=== PATIENT | female | born 1995 | race Caucasian/White ===

== ENCOUNTER 2019-09-13 14:52 | Emergency (ER) | payer OTHER ==
[2019-09-13 17:15] VITALS: BP 115/42
--- NOTE | 2019-09-13 17:35 | UC ---
Throat Pain/Nasal Jhoan HPI - HPI Summary HPI Summary: Pt presents with c/o sudden onset of fever, chills, and ST X 1 day. - History of Current Complaint Chief Complaint: UCGeneralIllness Stated Complaint: FEVER Time Seen by Provider: 09/13/19 17:17 Hx Obtained From: Patient Hx Last Menstrual Period: 09/07/19 ?: No Onset/Duration: Sudden Onset, Still Present Severity: Moderate Pain Intensity: 0 Cough: None Associated Signs & Symptoms: Positive: Dysphagia, Fever - Epiglottits Risk Factors Epiglottis Risk Factors: Sudden Onset - Allergies/Home Medications Allergies/Adverse Reactions: Allergies Allergy/AdvReac Type Severity Reaction Status Date / Time No Known Allergies Allergy Verified 09/13/19 17:14 Home Medications: Home Medications Penicillin VK 500 MG TAB(NF) [Penicillin VK 500 mg Tab] 500 mg PO Q8H #30 tab [Rx] PMH/Surg Hx/FS Hx/Imm Hx Previously Healthy: Yes - Family History Known Family History: Positive: Cardiac Disease - Social History Occupation: Student Lives: Dormitory/Roommates Alcohol Use: Weekly Substance Use Type: Marijuana Smoking Status (MU): Current Some Day Smoker - smoke marijuana Have You Smoked in the Last Year: Yes - Immunization History Vaccination Up to Date: Yes Review of Systems All Other Systems Reviewed And Are Negative: Yes Constitutional: Positive: Fever, Chills, Fatigue Skin: Positive: Negative Eyes: Positive: Negative ENT: Positive: Sore Throat Respiratory: Positive: Negative Cardiovascular: Positive: Negative Gastrointestinal: Positive: Negative Genitourinary: Positive: Negative Motor: Positive: Negative Neurovascular: Positive: Negative Musculoskeletal: Positive: Myalgia Neurological/Mental Status: Positive: Headache Psychological: Positive: Negative Is Patient Immunocompromised?: No Physical Exam Triage Information Reviewed: Yes Appearance: Ill-Appearing Vital Signs: Initial Vital Signs Temp 101 F 09/13/19 17:11 Pulse 116 09/13/19 17:11 Resp 20 09/13/19 17:11 BP 115/42 09/13/19 17:11 Pulse Ox 96 09/13/19 17:11 Vital Signs Reviewed: Yes Eye Exam: Normal ENT: Positive: Pharyngeal erythema, Tonsillar swelling Dental Exam: Normal Neck: Positive: Enlarged Nodes @ Respiratory Exam: Normal Cardiovascular: Positive: Tachycardia Abdominal Exam: Normal Musculoskeletal Exam: Normal Neurological Exam: Normal Psychological Exam: Normal Skin Exam: Normal Throat Pain/Nasal Course/Dx - Differential Dx/Diagnosis Differential Diagnosis/HQI/PQRI: Mononucleosis, Tonsillitis Provider Diagnosis: Strep throat Discharge ED - Sign-Out/Discharge Documenting (check all that apply): Patient Departure All imaging exams completed and their final reports reviewed: No Studies - Discharge Plan Condition: Stable Disposition: HOME Prescriptions: Penicillin VK 500 MG TAB(NF) [Penicillin VK 500 mg Tab] 500 mg PO Q8H #30 tab Patient Education Materials: Strep Throat (ED) Forms: *Work Release Referrals: [facility] [place] [facility] [Outside] - If Needed No Primary Care Phys,NOPCP [Primary Care Provider] - - Billing Disposition and Condition Condition: STABLE Disposition: Home
== END 2019-09-13 17:45 | disposition home or self-care (01) ==
LOC: UCCORT 14:52
DX: J02.9 Acute pharyngitis, unspecified (principal); M79.10 Myalgia, unspecified site; R50.9 Fever, unspecified; R51 Headache; F17.290 Nicotine dependence, other tobacco product, uncomplicated
CPT/HCPCS: 87651; 99201; G0463